=== PATIENT | female | born 1995 | race Caucasian/White ===

== ENCOUNTER 2025-03-15 23:11 | Emergency (ER) | payer OTHER, SELFPAY ==
[2025-03-15 23:13] VITALS: BP 136/73; PULSE 74; RESP 16; TEMP 36.4; O2SAT 100; BMI 20.4
--- NOTE | 2025-03-15 23:20 | ED_ITS ---
HPI - General Adult General Chief complaint: OB Stated complaint: abd pain, 36 weeks , water broke Time Seen by Provider: 03/15/25 23:37 Related Data Allergies Allergy/AdvReac Type Severity Reaction Status Date / Time No Known Allergies (No Known Allergy Verified 03/15/25 23:16 Allergies*) PMFSH Social History Social History Advance Directives: No Advance Directives Information Provided: Yes Physical Exam ED Vital Signs: Vital Signs - 24 hr 03/15/25 23:13 03/15/25 23:42 Temperature 97.5 F Pulse Rate 74 83 Respiratory Rate 16 20 Blood Pressure 136/73 Pulse Oximetry 100 98 Oxygen Delivery Method Room Air Room Air BMI result Body Mass Index 20.4 Course Course Course Narrative: RME: 29 yo F previous vaginal delivery 36 weeks coming in for evaluation of goo coming out of vagina at 12o clock today. No pooling of fluid. No regular contractions. No complications in previous Procedures Procedure Narrative Procedure Narrative: Ultrasound-guided IV 20 gauge 1-3/4 inch IV placed in left upper extremity, adequate blood return, flushes well secured with Tegaderm. Performed by Sarah Rene PA-C Medical Decision Making Lab Data 03/16/25 00:01 03/16/25 00:01 Labs: Lab Results 03/16/25 Range/Units 00:01 WBC 12.1 H (4.8-10.8) X10*3/uL RBC 3.36 L (4.20-5.50) X10*6/uL Hgb 8.3 L (12.0-16.0) g/dl Hct 27.1 L (37.0-47.0) % MCV 80.7 (80.0-98.0) fL MCH 24.7 L (27.0-33.0) pg MCHC 30.6 L (31.0-35.0) g/dl RDW 14.0 (11.0-16.0) % Plt Count 183 (160-400) X10*3/uL MPV 10.4 (9.4-12.3) fL Immature Gran % (Auto) 0.6 H (0.0-0.4) % Neut % (Auto) 72.9 (45-73) % Lymph % (Auto) 21.5 (20-40) % [place] % (Auto) 4.7 (2-11) % Eos % (Auto) 0.1 (0-4) % Baso % (Auto) 0.2 (0-2) % Lymph # (Auto) 2.6 (1.2-4.9) X10*3/uL [place] # (Auto) 0.6 (0.1-1.2) X10*3/uL Eos # (Auto) 0.0 (0.0-0.4) X10*3/uL Baso # (Auto) 0.0 (0.0-0.2) X10*3/uL Abs Immat Gran (auto) 0.07 H (0.00-0.03) X10*3/uL Absolute Neuts (auto) 8.8 H (2.0-8.3) x10*3/uL Absolute Nucleated RBC 0.000 (0.0-0.012) X10*3/uL Nucleated RBC % (auto) 0.0 (0.0-0.2) /100WBC Discharge Plan Discharge Clinical Impression: Third trimester Patient Disposition: Xfer Other Print Language: Haitian
--- NOTE | 2025-03-15 23:37 | ED.PREGNANCY ---
HPI - General Chief complaint: OB Stated complaint: abd pain, 36 weeks , water broke Time Seen by Provider: 03/15/25 23:37 History of Present Illness HPI Narrative: Patient is a 29-year-old female approximately 36 weeks previous history of IV drug use. This is the 3rd there is 1 live there is 1 elective termination. Patient did not receive any care during this . [facility] Patient [facility] because [facility] is the closest hospital. She is not having any contractions she has knows of. She feels there is some fullness to the lower abdomen. She elected to come here. She denies her water broke. Related Data Allergies Allergy/AdvReac Type Severity Reaction Status Date / Time No Known Allergies (No Known Allergy Verified 03/15/25 23:16 Allergies*) Review of Systems Review of Systems: No fever no chills Yes all other systems are reviewed and are negative PMFSH Past Medical History Attestation statement: The following information was validated with the patient. Social History Social History Advance Directives: No Advance Directives Information Provided: Yes Physical Exam Exam: Exam: Appearance: Alert. Oriented X3. No acute distress. Eyes: Pupils equal, round and reactive to light. ENT: Pharynx normal. Neck: Normal inspection. Neck supple. No lymph nodes noted. No crepitus CVS: Normal heart rate and rhythm. Pulses normal. Normal S1 and S2 Respiratory: No respiratory distress. Breath sounds normal. No Wheezing. No rales Abdomen: Gravid uterus. Skin: Skin warm and dry. Normal skin color. Normal skin turgor. I did a exam with nursing present. Grossly I can feel the head in the vaginal canal. The os seems closed. Extremities: No lower extremity edema. Neurovascular intact to all extremities. No Lacerations. No Rash Neuro: Oriented X 3. No motor deficit. No sensory deficit. Moving all extermities. No slurred speech Vital Signs: Vital Signs: Last Vital Signs Temp 97.5 F 03/15/25 23:13 Pulse 83 03/15/25 23:42 Resp 20 03/15/25 23:42 BP 136/73 03/15/25 23:13 Pulse Ox 98 03/15/25 23:42 O2 Del Method Room Air 03/15/25 23:42 BMI result Body Mass Index 20.4 Medical Decision Making Medical Decision Making MDM Narrative: I did a bedside ultrasound of heart tone that is approximately 160. Patient is not having regular contractions at this time. This is her 3rd . We have no OB coverage at [facility]. We contacted [facility] emergently. Ambulance on standby. Attempted to contact [facility] emergently. No response despite multiple phone calls. It is approximately 23:48. We attempted to call [facility]. WITH FINALLY ABLE TO GET IN TOUCH WITH OBGYN AT [facility]. At approximately 12:05 [facility] accepted patient on behalf of to the we to unit. Labs were sent. IV fluids started. A line was established. EMS going to take patient to [facility]. Differential Diagnosis Differential Diagnoses: The differential diagnosis associated with the presentation includes Admission/Observation Consideration of admission/observation: Escalation of care including admission/observation considered Will require transfer as we have no OB service Consult Healthcare Provider Management of the patient was discussed with: Service Station Equipment Mechanic ([facility] OB) Lab Data MDM Lab Attestation statement: I reviewed the patient's lab results. 03/16/25 00:01 03/16/25 00:01 Labs: Lab Results 03/16/25 Range/Units 00:01 WBC 12.1 H (4.8-10.8) X10*3/uL RBC 3.36 L (4.20-5.50) X10*6/uL Hgb 8.3 L (12.0-16.0) g/dl Hct 27.1 L (37.0-47.0) % MCV 80.7 (80.0-98.0) fL MCH 24.7 L (27.0-33.0) pg MCHC 30.6 L (31.0-35.0) g/dl RDW 14.0 (11.0-16.0) % Plt Count 183 (160-400) X10*3/uL MPV 10.4 (9.4-12.3) fL Immature Gran % (Auto) 0.6 H (0.0-0.4) % Neut % (Auto) 72.9 (45-73) % Lymph % (Auto) 21.5 (20-40) % [place] % (Auto) 4.7 (2-11) % Eos % (Auto) 0.1 (0-4) % Baso % (Auto) 0.2 (0-2) % Lymph # (Auto) 2.6 (1.2-4.9) X10*3/uL [place] # (Auto) 0.6 (0.1-1.2) X10*3/uL Eos # (Auto) 0.0 (0.0-0.4) X10*3/uL Baso # (Auto) 0.0 (0.0-0.2) X10*3/uL Abs Immat Gran (auto) 0.07 H (0.00-0.03) X10*3/uL Absolute Neuts (auto) 8.8 H (2.0-8.3) x10*3/uL Absolute Nucleated RBC 0.000 (0.0-0.012) X10*3/uL Nucleated RBC % (auto) 0.0 (0.0-0.2) /100WBC Critical Care Time Critical Care Time Critical Care Time: Yes Total Critical Care Time: 50 Attestation: I have personally provided 50 minutes of critical care time exclusive of time spent on separately billable procedures. ?Time includes review of lab data, radiology results, discussion with consultants, and monitoring for potential decompensation. ?Interventions were performed as documented above Discharge Plan Discharge Clinical Impression: Third trimester Patient Disposition: Xfer Other Print Language: Paraguayan
[2025-03-15 23:42] VITALS: PULSE 83; RESP 20; O2SAT 98
[2025-03-16 00:05] LABS: MANUAL DIFF FLAG NO
[2025-03-16 00:06] LABS: Hematocrit 27.1 % (37.0-47.0); Hemoglobin 8.3 g/dl (12.0-16.0); Imm Gran Abs Auto 0.07 X10*3/uL (0.00-0.03); Imm Gran Pct Auto 0.6 % (0.0-0.4); Lymphocytes Absolute Auto 2.6 X10*3/uL (1.2-4.9); Mean Corpuscular HGB Conc 30.6 g/dl (31.0-35.0); Mean Corpuscular Hemoglobin 24.7 pg (27.0-33.0); Mean Corpuscular Volume 80.7 fL (80.0-98.0); NRBC Abs Auto 0.000 X10*3/uL (0.0-0.012); NRBC Pct Auto 0.0 /100WBC (0.0-0.2); Platelet Count 183 X10*3/uL (160-400); Red Blood Count 3.36 X10*6/uL (4.20-5.50); White Blood Count 12.1 X10*3/uL (4.8-10.8)
[2025-03-16 00:20] LABS: Alanine Aminotransferase 8 U/L (0-31); Albumin Level 3.2 g/dL (3.5-5.0); Alkaline Phosphatase 176 U/L (39-117); Anion Gap 13 (12-20); Aspartate Amino Transferase 22 U/L (5-31); Blood Urea Nitrogen 3 mg/dL (9-16); Calcium 8.1 mg/dL (8.4-10.2); Carbon Dioxide 23 mmol/L (22-29); Chloride 104 mmol/L (96-108); Creatinine Clr Calc Pharmacy 163.5; Estimated Glomerular Filt Rate > 60; Potassium 3.3 mmol/L (3.3-5.1); Sodium 137 mmol/L (135-145); Total Protein 6.1 g/dL (6.5-8.0)
--- NOTE | 2025-03-16 00:23 | PC.NURSE ---
pt a&ox4, respirations even and unlabored. pt reports she is approx. 36 weeks , experienced a large barrios of vaginal fluids around noon and increased vaginal pressure. pt arrived to ed bed 6, at bedside, US obtained, tones of 160, pelvic preformed with this rn at bedside. US guided IV placed in left ac 20g, iv fluids. pt noted to have contractions approx. 45 seconds apart. NSR on tele 80bpm. pt states she last used heroin this am. Boyfriend at bedside. 0015- ems at bedside 0018- report [facility] to [facility] at [facility].
[2025-03-16 00:28] VITALS: BP 138/76; PULSE 84; RESP 17; TEMP 36.6; O2SAT 100
[2025-03-16 00:30] VITALS: BP 138/76; PULSE 84; RESP 17; TEMP 36.6; O2SAT 100
== END 2025-03-16 00:32 | disposition other institution (70) ==
PROVIDERS: Emergency Provider Emergency Medicine Emergency Medical Services
DX: O26.893 Other specified pregnancy related conditions, third trimester (principal); Z3A.36 36 weeks gestation of pregnancy; Z79.899 Other long term (current) drug therapy
CPT/HCPCS: 36415; 80048; 80076; 85025; 86850; 86900; 86901; 99285